=== PATIENT | male | born 1960 | race Caucasian/White ===

== ENCOUNTER 2019-12-17 03:30 | Outpatient (RCR) | payer OTHER, SELFPAY ==
[2019-12-17] MEDS: diphenhydrAMINE 50 MG/ML VIAL IV (09:28)
[2019-12-17] MEDS: methylPREDNISolone SUCC 125 MG VIAL 100 MG IV (09:28)
[2019-12-17] MEDS: Normal Saline Flush 10 ML SYR IVP (09:29)
[2019-12-17 10:20] VITALS: BP 119/88; PULSE 130; RESP 19; TEMP 36.5; O2SAT 95
[2019-12-17 10:50] VITALS: BP 138/86; PULSE 122; RESP 18; TEMP 36.3; O2SAT 96
[2019-12-17 11:20] VITALS: BP 134/98; PULSE 113; RESP 19; TEMP 36.7; O2SAT 98
[2019-12-17 11:55] VITALS: BP 158/89; PULSE 122; RESP 19; TEMP 36.7; O2SAT 96
[2019-12-17 12:20] VITALS: BP 152/82; PULSE 120; RESP 18; TEMP 36.7; O2SAT 97
[2019-12-17 12:50] VITALS: BP 133/88; PULSE 122; RESP 19; TEMP 36.4; O2SAT 96
== END 2019-12-27 23:59 | disposition home or self-care (01) ==
LOC: INF 03:30
PROVIDERS: PCP Internal Medicine; Visit Provider Internal Medicine
DX: M06.9 Rheumatoid arthritis, unspecified (principal)
CPT/HCPCS: 96365; 96366; J1200; J2930; J9312

== ENCOUNTER 2019-12-31 03:03 | Outpatient (RCR) | payer OTHER, SELFPAY ==
[2019-12-31] MEDS: methylPREDNISolone SUCC 125 MG VIAL 100 MG IV (09:15)
[2019-12-31] MEDS: diphenhydrAMINE 50 MG/ML VIAL IV (09:16)
[2019-12-31 09:18] VITALS: BP 148/68; PULSE 123; RESP 20; TEMP 36.8; O2SAT 96
[2019-12-31 10:04] VITALS: BP 145/102; PULSE 116; RESP 18; TEMP 36.6; O2SAT 97
[2019-12-31] MEDS: Normal Saline Flush 10 ML SYR IVP (10:04)
[2019-12-31 10:34] VITALS: BP 135/95; PULSE 110; RESP 19; TEMP 36; O2SAT 97
[2019-12-31 11:04] VITALS: BP 151/100; PULSE 107; RESP 19; TEMP 36; O2SAT 95
== END 2020-01-26 23:59 | disposition home or self-care (01) ==
LOC: INF 03:03
PROVIDERS: PCP Internal Medicine; Visit Provider Internal Medicine
DX: M06.9 Rheumatoid arthritis, unspecified (principal)
CPT/HCPCS: 96365; 96366; 96374; 96375; J1200; J2930; J9312

== ENCOUNTER 2020-06-17 05:11 | Outpatient (RCR) | payer OTHER, SELFPAY ==
[2020-06-17] VITALS (8 sets, daily range): BP systolic 130–152; BP diastolic 80–90; PULSE 108–121; RESP 18–21; TEMP 37–37.1; O2SAT 96–98
[2020-06-17] MEDS: diphenhydrAMINE 25 MG CAP PO (08:53)
[2020-06-17] MEDS: methylPREDNISolone SUCC 125 MG VIAL 100 MG IVP (08:53)
[2020-06-17] MEDS: Normal Saline Flush 10 ML SYR IVP (08:54)
== END 2020-06-27 23:59 | disposition home or self-care (01) ==
LOC: INF 05:11
PROVIDERS: PCP Family Medicine; Visit Provider Internal Medicine
DX: M06.9 Rheumatoid arthritis, unspecified (principal)
CPT/HCPCS: 96365; 96366; 96375; 96413; 96415; J2930; J9312

== ENCOUNTER 2020-07-01 05:18 | Outpatient (RCR) | payer OTHER, SELFPAY ==
[2020-07-01] MEDS: diphenhydrAMINE 25 MG CAP PO (08:48)
[2020-07-01] MEDS: Normal Saline Flush 10 ML SYR IVP ×2 (08:49→09:13)
[2020-07-01] MEDS: methylPREDNISolone SUCC 125 MG VIAL 100 MG IVP (08:49)
[2020-07-01 09:10] VITALS: BP 120/77; PULSE 114; RESP 20; TEMP 37; O2SAT 97
[2020-07-01 09:40] VITALS: BP 136/82; PULSE 110; RESP 20; TEMP 37.2; O2SAT 97
[2020-07-01 10:10] VITALS: BP 123/84; PULSE 101; RESP 18; TEMP 38.1; O2SAT 96
[2020-07-01 10:41] VITALS: BP 129/84; PULSE 109; RESP 20; TEMP 38.2; O2SAT 96
[2020-07-01 11:30] VITALS: BP 148/87; PULSE 111; RESP 22; TEMP 36.8; O2SAT 96
[2020-07-01 12:19] VITALS: BP 122/86; PULSE 107; RESP 22; TEMP 36.3; O2SAT 94
== END 2020-07-28 23:59 | disposition home or self-care (01) ==
LOC: INF 05:18
PROVIDERS: PCP Family Medicine; Visit Provider Internal Medicine
DX: M06.9 Rheumatoid arthritis, unspecified (principal)
CPT/HCPCS: 96365; 96366; 96375; 96413; 96415; J2930; J9312

== ENCOUNTER 2021-01-13 02:16 | Outpatient (RCR) | payer OTHER, SELFPAY ==
[2020-07-29 00:01] VITALS: BP 122/86; PULSE 107; RESP 22; TEMP 36.3
[2020-12-30] VITALS (8 sets, daily range): BP systolic 122–146; BP diastolic 60–90; PULSE 103–111; RESP 20–21; TEMP 36.8–37.1; O2SAT 94–98
[2020-12-30] MEDS: diphenhydrAMINE 25 MG CAP PO (08:58)
[2020-12-30] MEDS: methylPREDNISolone SUCC 125 MG VIAL 100 MG IVP (09:00)
[2020-12-30] MEDS: Normal Saline Flush 10 ML SYR IVP (09:01)
[2021-01-13] MEDS: Normal Saline Flush 10 ML SYR IVP (08:59)
[2021-01-13] MEDS: diphenhydrAMINE 25 MG CAP PO (09:01)
[2021-01-13] MEDS: methylPREDNISolone SUCC 125 MG VIAL 100 MG IVP (09:04)
[2021-01-13 09:18] VITALS: BP 125/78; PULSE 99; RESP 21; TEMP 37.3; O2SAT 95
[2021-01-13 09:52] VITALS: BP 133/80; PULSE 96; RESP 20; TEMP 37.3; O2SAT 96
[2021-01-13 10:22] VITALS: BP 126/77; PULSE 98; RESP 20; TEMP 37.3; O2SAT 96
[2021-01-13 10:52] VITALS: BP 138/88; PULSE 95; RESP 20; TEMP 37.3; O2SAT 97
== END 2021-01-25 23:59 | disposition home or self-care (01) ==
LOC: INF 02:16
PROVIDERS: PCP Family Medicine; Visit Provider Internal Medicine
DX: M06.9 Rheumatoid arthritis, unspecified (principal)
CPT/HCPCS: 96365; 96366; 96374; 96375; 96413; 96415; J2930; J9312

== ENCOUNTER 2022-01-10 02:04 | Outpatient (RCR) | payer OTHER, SELFPAY ==
[2022-01-10] VITALS (9 sets, daily range): BP systolic 120–148; BP diastolic 72–86; PULSE 75–94; RESP 20; TEMP 36.5–37; O2SAT 94–98
[2022-01-10] MEDS: diphenhydrAMINE 25 MG CAP PO (08:25)
[2022-01-10] MEDS: Normal Saline Flush 10 ML SYR IVP (08:26)
[2022-01-10] MEDS: Acetaminophen 325 MG TAB 650 MG PO (08:26)
[2022-01-10] MEDS: methylPREDNISolone SUCC 125 MG VIAL 100 MG IVP (08:26)
== END 2022-01-25 23:59 | disposition home or self-care (01) ==
LOC: INF 02:04
PROVIDERS: PCP Family Medicine; Visit Provider Internal Medicine
DX: M06.9 Rheumatoid arthritis, unspecified (principal)
CPT/HCPCS: 96365; 96366; 96374; 96375; 96413; 96415; J2930; J9312